=== PATIENT | female | born 1955 | race Caucasian/White ===

== ENCOUNTER 2021-10-11 11:43 | Outpatient (REF) | payer OTHER, SELFPAY ==
[2021-10-11 13:55] LABS: Hematocrit 39.2 % (37.0-47.0); Hemoglobin 12.7 g/dl (12.0-16.0)
[2021-10-11 14:07] LABS: Alanine Aminotransferase 11 U/L (0-31); Albumin Level 3.9 g/dL (3.5-5.0); Alkaline Phosphatase 73 U/L (39-117); Anion Gap 13 (12-20); Aspartate Amino Transferase 15 U/L (5-31); Bilirubin Total 0.3 mg/dL (0.0-1.0); Blood Urea Nitrogen 24 mg/dL (9-16); Calcium 9.2 mg/dL (8.4-10.2); Carbon Dioxide 23 mmol/L (22-29); Chloride 108 mmol/L (96-108); Cholesterol 213 mg/dL; Estimated Glomerular Filt Rate > 60; Glucose Fasting 82 mg/dL (60-99); HDL Cholesterol 45 mg/dL; LDL Cholesterol Calculated 139 mg/dl; Potassium 4.3 mmol/L (3.3-5.1); Sodium 140 mmol/L (135-145); Total Protein 6.7 g/dL (6.5-8.0); Triglycerides 145 mg/dL
== END 2021-10-11 11:44 | disposition home or self-care (01) ==
LOC: HO.HMGCLDS 11:43
PROVIDERS: PCP Internal Medicine; Visit Provider Internal Medicine
DX: M25.471 Effusion, right ankle (principal); M25.552 Pain in left hip; E66.09 Other obesity due to excess calories
CPT/HCPCS: 36415; 80053; 80061; 84443; 85014; 85018

== ENCOUNTER 2022-12-08 12:05 | Outpatient (REF) | payer OTHER, SELFPAY ==
--- NOTE | ~2022-12-08 | XR_ITS ---
EXAMINATION: XR ankle LT min 3V, XR foot LT min 3V CLINICAL INFORMATION: Pain COMPARISON: None. TECHNIQUE: 3 views of the left foot. 2 additional views of the left ankle. FINDINGS: Left foot: No fracture or dislocation. Alignment maintained. Joint spaces are maintained. Small Achilles heel spur. Small osteophytes at the first metatarsophalangeal joint. Scattered vascular calcifications. Left ankle: No fracture or dislocation. The ankle mortise is congruent. Mild lateral soft tissue swelling. XR/XR ankle LT min 3V IMPRESSION: No fracture or malalignment. Mild degenerative change at the first metatarsophalangeal joint. Small Achilles heel spur.
--- NOTE | ~2022-12-08 | XR_ITS ---
EXAMINATION: XR ankle LT min 3V, XR foot LT min 3V CLINICAL INFORMATION: Pain COMPARISON: None. TECHNIQUE: 3 views of the left foot. 2 additional views of the left ankle. FINDINGS: Left foot: No fracture or dislocation. Alignment maintained. Joint spaces are maintained. Small Achilles heel spur. Small osteophytes at the first metatarsophalangeal joint. Scattered vascular calcifications. Left ankle: No fracture or dislocation. The ankle mortise is congruent. Mild lateral soft tissue swelling. XR/XR foot LT min 3V IMPRESSION: No fracture or malalignment. Mild degenerative change at the first metatarsophalangeal joint. Small Achilles heel spur.
== END 2022-12-08 12:06 | disposition home or self-care (01) ==
LOC: HO.HMGCX 12:05
PROVIDERS: PCP Internal Medicine; Visit Provider Nurse Practitioner Family
DX: M25.572 Pain in left ankle and joints of left foot (principal); M79.672 Pain in left foot
CPT/HCPCS: 73610; 73630

== ENCOUNTER 2023-01-10 11:18 | Outpatient (REF) | payer OTHER, SELFPAY ==
[2023-01-10 14:23] LABS: MANUAL DIFF FLAG NO
[2023-01-10 14:38] LABS: Basophils Absolute Auto 0.1 X10*3/uL (0.0-0.2); Basophils Percent Auto 0.9 % (0-2); Eosinophils Absolute Auto 0.2 X10*3/uL (0.0-0.4); Eosinophils Percent Auto 2.4 % (0-4); Hematocrit 38.5 % (37.0-47.0); Hemoglobin 12.5 g/dl (12.0-16.0); Imm Gran Abs Auto 0.02 X10*3/uL (0.00-0.03); Imm Gran Pct Auto 0.3 % (0.0-0.4); Lymphocytes Absolute Auto 1.5 X10*3/uL (1.2-4.9); Lymphocytes Percent Auto 19.1 % (20-40); Mean Corpuscular HGB Conc 32.5 g/dl (31.0-35.0); Mean Corpuscular Hemoglobin 29.6 pg (27.0-33.0); Mean Corpuscular Volume 91.2 fL (80.0-98.0); Mean Platelet Volume 10.1 fL (9.4-12.3); Monocytes Absolute Auto 0.6 X10*3/uL (0.1-1.2); Neutrophils Absolute Auto 5.5 x10*3/uL (2.0-8.3); Neutrophils Percent Auto 70.3 % (45-73); Platelet Count 229 X10*3/uL (160-400); Red Blood Count 4.22 X10*6/uL (4.20-5.50); Red Cell Distribution Width 12.5 % (11.0-16.0); White Blood Count 7.8 X10*3/uL (4.8-10.8)
[2023-01-10 15:04] LABS: Alanine Aminotransferase 18 U/L (0-31); Albumin Level 4.1 g/dL (3.5-5.0); Alkaline Phosphatase 79 U/L (39-117); Anion Gap 13 (12-20); Aspartate Amino Transferase 21 U/L (5-31); Bilirubin Total 0.4 mg/dL (0.0-1.0); Blood Urea Nitrogen 25 mg/dL (9-16); Calcium 9.7 mg/dL (8.4-10.2); Carbon Dioxide 26 mmol/L (22-29); Chloride 109 mmol/L (96-108); Estimated Glomerular Filt Rate > 60; Glucose Random 88 mg/dL (60-115); Potassium 4.6 mmol/L (3.3-5.1); Sodium 143 mmol/L (135-145)
[2023-01-10 15:22] LABS: TSH reflex Free T4 3.33 uIU/mL (0.32-4.0); Vitamin B12 689 pg/mL (200-900)
[2023-01-12 09:28] LABS: LDL Cholesterol Direct 149 mg/dL (<100)
[2023-01-17 13:13] LABS: Vitamin D 25-OH, D2 <4 ng/mL; Vitamin D 25-OH, D3 17 ng/mL; Vitamin D 25-OH, Total 17 ng/mL (30-100)
== END 2023-01-10 11:19 | disposition home or self-care (01) ==
LOC: HO.HMGCLDS 11:18
PROVIDERS: PCP Internal Medicine; Visit Provider Internal Medicine
DX: Z00.01 Encounter for general adult medical examination with abnormal findings (principal); E66.09 Other obesity due to excess calories; M25.552 Pain in left hip; I83.893 Varicose veins of bilateral lower extremities with other complications; E66.9 Obesity, unspecified; R53.83 Other fatigue
CPT/HCPCS: 36415; 80053; 82306; 82607; 83721; 84443; 85025

== ENCOUNTER 2023-02-27 10:26 | Outpatient (AMB) | payer OTHER, SELFPAY ==
--- NOTE | 2023-02-27 10:28 | MHC.OFFVIS ---
Intake Vital Signs 02/27/23 10:29 Height 5 ft 6 in Weight 230 lb BMI 37.1 Intake Visit Reasons: PCP ref for VV Intake Note: PCP referral for VV, pt states she has left LE pain and issues with numbness on left foot, states she has Hx of Left calf muscle issue and goes to physical therapy.Pt states she has heaviness in Left LE Accompanied by: Self / Same As Patient Allergies No Known Allergies Allergy (Verified 02/27/23 10:31) HPI PCP ref for VV HPI Details 67-year-old female patient presents for painful varicose veins. Complaints include pain over varicosities, swelling of lower extremities, cramping, fatigue, and heaviness of the lower extremities. It has been affecting there daily activities including walking. It is noted more so in left leg. Her biggest complaint is the ?swelling and puffiness? of her legs Patient denies any previous venous surgery or injections. Patient denies any history of DVT/ PE. Patient denies any history of phlebitis. Trial of compression includes - [id number] They now present for vascular evaluation regarding their varicose veins. [facility] Social History Housing: House Patient Tobacco Use Status: Never used Tobacco e-Cigarette/Vaping Use: Never Used Current occupational status: employed Current occupation: [employer] Current occupational exposures/hazards: No Cognitive needs: No Hearing needs: No Vision needs: No Review of Systems Const Reports as per HPI ENT Reports no additional complaints Card Denies chest pain, Denies chest pain at rest and Denies chest pain with activity Resp Denies chest congestion and Denies cough GI Reports no additional complaints Musc Details: pain over varicosities, aching of lower extremities, swelling, cramping, heaviness and tiredness, itching Denies abnormal gait Skin/Breast Reports pruritus and Denies wounds Neuro Reports no additional complaints and Denies abnormal gait Psych Denies no additional complaints Physical Exam Vital Signs: BMI result Body Mass Index 37.1 Const General: cooperative, healthy appearing and comfortable Orientation/consciousness: oriented to person, oriented to place and oriented to time Neck Carotids: no bruits Chest Chest palpation & inspection: normal inspection of the chest and normal palpation of entire chest wall Resp Effort & Inspection: normal respiratory effort and able to speak in complete sentences Cardio Rate: regular rate Heart sounds: S1 normal heart sound present and S2 normal heart sound present Peripheral pulses: Peripheral pulses 2+ throughout GI Inspection: Yes normal to inspection Skin Other: +2 edema, left greater than right CEAP Classification C4 - skin color changes Ep - Etiology Primary As - superficial veins P - reflux General skin exam: dry skin Neuro General: oriented to person, oriented to place and oriented to time Extrem Right lower extremity: full ROM, normal capillary refill and edema Left lower extremity: full ROM, normal capillary refill and edema Psych Mental Status: mental status grossly normal Assessment & Plan Assessment & Plan (1) Varicose veins of left lower extremity with inflammation: Code(s): I83.12 - Varicose veins of left lower extremity with inflammation Plan: In short, the patient has evidence of venous insufficiency. I have discussed the pathophysiology with the patient. In addition I have provided informational material regarding venous disease to the patient. We have discussed conservative measures including compression, elevation, and exercise. I have also provided a handout regarding appropriate use of compression stockings and where to purchase good compression stockings as well. I have taken the liberty of ordering venous insufficiency testing with the patient. They will follow up with me after testing. The patient had an opportunity to ask questions regarding the treatment plan. All questions were answered. Imaging studies, laboratory studies and physical exam results were discussed and reviewed in detail. No major barriers to understanding were identified. The patient expressed understanding and agreement with the above treatment plan. The patient is aware they should contact our office by phone for worsening of the current condition or the appearance of new symptoms. Thank you for allowing me to participate in the vascular care of this patient. If you have any questions or concerns regarding the treatment for the above condition please do not hesitate to contact me. The office telephone contact is [phone]. This note is constructed using voice recognition software. While every effort has been made to ensure accuracy, ultimate hoops scoreboard operator errors may have been included. Thank you for allowing me to participate in the care of your patient. Yours sincerely, Geronimo Love MD, FACS, R.P.V.I. Orders: Orders US venous duplex LE BI 1 Week I83.12 - Varicose veins of left lower extremity with inflammation Coding Level of Care Code New Pt Level 4 (72237) Diagnoses Varicose veins of left lower extremity with inflammation I83.12
[2023-02-27 10:29] VITALS: BMI 37.1
== END 2023-02-27 10:55 | disposition home or self-care (01) ==
LOC: HO.HVS 10:26
PROVIDERS: PCP Internal Medicine; Visit Provider Surgery Vascular Surgery
DX: I83.12 Varicose veins of left lower extremity with inflammation (principal)
CPT/HCPCS: 99203

== ENCOUNTER → 2023-02-27 10:26 | Outpatient (BNVA) | payer OTHER, SELFPAY | PROVIDERS: PCP Internal Medicine; Visit Provider Surgery Vascular Surgery ==

== ENCOUNTER 2023-03-08 10:12 | Outpatient (REF) | payer OTHER, SELFPAY ==
--- NOTE | ~2023-03-08 | US_ITS ---
EXAMINATION: US LOWER EXTREMITY VENOUS (REFLUX EXAM), BILATERAL CLINICAL INDICATION: Varicose veins of the left lower extremity COMPARISON: None. TECHNIQUE: Color flow triplex imaging and compression Doppler was performed to evaluate both the deep and the superficial systems bilaterally. To evaluate the superficial system, the examination was performed in the upright position. Color-flow Doppler ultrasound and compression ultrasound were utilized. In addition, maneuvers were utilized to demonstrate reflux. FINDINGS: RIGHT: 1. DEEP VENOUS ULTRASOUND OF THE RIGHT LOWER EXTREMITY: Common Femoral Vein: Compressible, normal respiratory variation and augmented flow. Popliteal Vein: Compressible, normal augmentation. Deep Venous Reflux: There is no evidence of reflux in the deep system in either the common femoral vein or the popliteal vein. There is no evidence of a Neri's cyst. 2. SUPERFICIAL ULTRASOUND WITH DOPPLER OF RIGHT LOWER EXTREMITY: RIGHT GREAT SAPHENOUS VEIN: Saphenofemoral Junction: 6 mm. No reflux. Proximal Thigh: 6 mm. No reflux. Mid Thigh: 4 mm. No reflux. Above Knee: 3 mm. No reflux. Below Knee: 3 mm. No reflux. Mid Calf: 2 mm. No reflux. Ankle: 3 mm. No reflux. DUPLICATED GREAT SAPHENOUS VEIN: Yes, laterally Saphenofemoral junction: 2 mm. No reflux. Mid thigh: 2 mm. No reflux. RIGHT SMALL SAPHENOUS VEIN: Proximal: 2 mm. 1268 ms reflux. Distal: 2 mm. 2656 ms reflux. PERFORATORS: None LEFT: 1. DEEP VENOUS ULTRASOUND OF THE LEFT LOWER EXTREMITY: Common Femoral Vein: Compressible, normal respiratory variation and augmented flow. Popliteal Vein: Compressible, normal augmentation. Deep Venous Reflux: There is no evidence of reflux in the deep system in either the common femoral vein or the popliteal vein. There is no evidence of a Neri's cyst. 2. SUPERFICIAL ULTRASOUND WITH DOPPLER OF LEFT LOWER EXTREMITY: LEFT GREAT SAPHENOUS VEIN: Saphenofemoral Junction: 7 mm. No reflux. Proximal Thigh: 6 mm. No reflux. Mid Thigh: 2 mm. No reflux. Above Knee: 4 mm. No reflux. Below Knee: 3 mm. No reflux. Mid Calf: 2 mm. 34838 ms reflux. Ankle: 2 mm. No reflux. DUPLICATED GREAT SAPHENOUS VEIN: Yes, laterally Saphenofemoral junction: 2 mm. No reflux. Mid thigh: 2 mm. No reflux. LEFT SMALL SAPHENOUS VEIN: Proximal: 3 mm. No reflux. Distal: 2 mm. No reflux. PERFORATORS: Yes, at the level of the mid calf tubing to the great saphenous vein. US/US venous duplex LE BI IMPRESSION: 1. No evidence of deep vein thrombosis or abnormal deep venous reflux. 2. Prolonged superficial venous reflux within the right small saphenous vein. 3. Focal abnormal official venous reflux within the mid calf great saphenous vein, likely from adjacent boiler water tester. Abnormal lower extremity venous reflux times: Superficial and deep calf veins: >500 ms Femoropopliteal veins: >1000 ms Perforating veins: >350 ms Jonathon N, Gilda J, Lilo L, [place], Stevie SS, Crow Reyes, Halle WH. Definition of venous reflux in lower-extremity veins.J Vasc Surg. 2003; [id number].
== END 2023-03-08 10:13 | disposition home or self-care (01) ==
LOC: HO.US 10:12
PROVIDERS: PCP Internal Medicine; Visit Provider Surgery Vascular Surgery
DX: I83.12 Varicose veins of left lower extremity with inflammation (principal)
CPT/HCPCS: 93970

== ENCOUNTER 2023-04-03 10:58 | Outpatient (AMB) | payer OTHER, SELFPAY ==
--- NOTE | 2023-04-03 11:00 | MHC.OFFVIS ---
Intake Vital Signs 04/03/23 11:03 Height 5 ft 6 in Weight 230 lb BMI 37.1 Intake Visit Reasons: follow up s/p 03/08/23 Intake Note: Patient is here for a follow up s/p 03/08/23 Accompanied by: self Allergies No Known Allergies Allergy (Verified 04/03/23 11:02) HPI follow up s/p 03/08/23 HPI Details Very pleasant 67-year-old female presents for follow-up regarding lower extremity pain and discomfort. She notes swelling and discomfort bilateral lower extremities. She now presents for follow-up with venous insufficiency testing. Of note she has tried compression which has provided minimal relief. She has had difficulty wearing compression stockings as well. [facility] Social History Housing: House Patient Tobacco Use Status: Never used Tobacco e-Cigarette/Vaping Use: Never Used Current occupational status: employed Current occupation: [employer] Current occupational exposures/hazards: No Cognitive needs: No Hearing needs: No Vision needs: No Review of Systems Const Reports as per HPI ENT Reports no additional complaints Card Denies chest pain, Denies chest pain at rest and Denies chest pain with activity Resp Denies chest congestion and Denies cough GI Reports no additional complaints Musc Details: pain over varicosities, aching of lower extremities, swelling, cramping, heaviness and tiredness, itching Denies abnormal gait Skin/Breast Reports pruritus and Denies wounds Neuro Reports no additional complaints and Denies abnormal gait Psych Denies no additional complaints Physical Exam Vital Signs: BMI result Body Mass Index 37.1 Const General: cooperative, healthy appearing and comfortable Orientation/consciousness: oriented to person, oriented to place and oriented to time Neck Carotids: no bruits Chest Chest palpation & inspection: normal inspection of the chest and normal palpation of entire chest wall Resp Effort & Inspection: normal respiratory effort and able to speak in complete sentences Cardio Rate: regular rate Heart sounds: S1 normal heart sound present and S2 normal heart sound present Peripheral pulses: Peripheral pulses 2+ throughout GI Inspection: Yes normal to inspection Skin Other: +2 edema, General skin exam: dry skin Neuro General: oriented to person, oriented to place and oriented to time Extrem Right lower extremity: full ROM, normal capillary refill and edema Left lower extremity: full ROM, normal capillary refill and edema Psych Mental Status: mental status grossly normal Results Reviewed Results Reviewed: Brief summary of venous insufficiency testing is as follows: right great saphenous vein: negative right small saphenous vein: negative right accessory vein: none present left great saphenous vein: negative left small saphenous vein: negative left accessory vein: none present Please note there is no evidence of any venous aneurysms or significant tortuosity Assessment & Plan Assessment & Plan (1) Varicose veins of left lower extremity with inflammation: Code(s): I83.12 - Varicose veins of left lower extremity with inflammation Plan: In short patient is negative for any significant venous insufficiency. We did discuss routine conservative measures including compression elevation and exercise. She did have a challenge with the compression stockings and we did discuss title clerk automobile grade compression including use of [id number] compression stockings. She will try to see if she can acquire some of these to assist in controlling some of this edema. She will follow up with us on an as-needed basis. Thank you for allowing us to assist in her care. If there are questions or concerns please do not hesitate to contact us. Coding Level of Care Code Est Pt Level 4 (50127) Diagnoses Varicose veins of left lower extremity with inflammation I83.12
[2023-04-03 11:03] VITALS: BMI 37.1
== END 2023-04-03 11:19 | disposition home or self-care (01) ==
PROVIDERS: PCP Internal Medicine; Visit Provider Surgery Vascular Surgery
DX: I83.12 Varicose veins of left lower extremity with inflammation (principal)
CPT/HCPCS: 99213

== ENCOUNTER → 2023-04-03 10:58 | Outpatient (BNVA) | payer OTHER, SELFPAY | PROVIDERS: PCP Internal Medicine; Visit Provider Surgery Vascular Surgery ==

== ENCOUNTER 2023-08-24 08:31 | Outpatient (AMB) | payer OTHER, SELFPAY ==
--- NOTE | 2023-08-24 08:42 | MHC.PC.OV ---
Intake Visit Reasons: Singles? per Dr. Leal Allergies No Known Allergies Allergy (Verified 08/24/23 08:34) Medication List - Last Reconciled 08/24/23 by Gloria Leal MD meloxicam 15 mg PO DAILY 90 days omeprazole 20 mg PO DAILY 90 days Tobacco use date assessed: 08/24/23 Fall risk assessment: No Falls in past year Last assessed Fall Risk: 08/24/23 Dental Screening Dental Screen Date: 08/24/23 Did you have a dental visit in the last 12 months?: No Did you have a dental problem in the last 6 months where you did not have access to dental care?: No Was dental information given to patient?: No HPI Singles? per Dr. Leal HPI Details Patient is 68 year old female She developed rash right upper shoulder last witnessed a Which was painful She went to urgent care Sunday and was prescribed acyclovir and meloxicam Patient is almost done with acyclovir, feeling little bit better but pain is still there. Today on examination there is no rash however she is sensitive to touch right shoulder on the back. Range of motion of shoulder is intact. Patient says that she did had a shingles vaccine. I am starting her on gabapentin 300 mg at night along with tramadol 50 mg Patient is to finish tramadol for 2 weeks and then gabapentin may continued for a month She admits that she is not eating healthy only bread, we talked about nutritious diet I have sent B complex vitamin she is to start taking that as well Follow-up again in 2 weeks [facility] Social History Housing: House Patient Tobacco Use Status: Never used Tobacco e-Cigarette/Vaping Use: Never Used Current occupational status: employed Current occupation: [employer] Current occupational exposures/hazards: No Cognitive needs: No Hearing needs: No Vision needs: No Questionnaire Thrive Questionnaire Date Thrive assessed: 01/10/23 AUDIT C Alcohol Use Questionnaire (AUDIT-C) 1. How often do you have a drink containing alcohol?: Never 3. How often do you have six or more drinks on one occasion?: Never Total Score: 0 Score Reviewed/Action Taken: Yes MARGAUX-7 AMB Questionnaire MARGAUX-7 Date MARGAUX - 7 assessed: 01/10/23 Source: Developed by Drs. Marlon L. PrincessMaritza powers, Bryan Madrid and colleagues, with an educational lorri from [employer]. Review of Systems Const Denies chills and Denies fever(s) ENT Denies epistaxis and Denies nasal discharge Card Denies chest pain Resp Denies chest congestion, Denies cough and Denies hemoptysis GI Denies diarrhea and Denies nausea Skin/Breast Denies rash Neuro Reports no additional complaints Psych Reports no additional complaints Endo Reports no additional complaints Physical exam (Primary Care) Tobacco/Smoking Status: Tobacco use Status Tobacco use date assessed 08/24/23 08/24/23 08:43 Patient Tobacco Use Status Never used Tobacco 08/24/23 08:43 e-Cigarette/Vaping Use Never Used 08/24/23 08:43 Thrive Assessment: Date of Thrive Assessment Date Thrive assessed 01/10/23 08/24/23 08:43 Const General: cooperative, comfortable and no acute distress Orientation/consciousness: patient oriented x3 HENMT Head: Yes normocephalic Eyes General: appearance normal, both eyes and all related structures Neck Neck: Yes supple Resp Effort & Inspection: normal respiratory effort, no cough and no stridor Cardio Rhythm: regular rhythm Heart sounds: S1 normal heart sound present and S2 normal heart sound present Skin General skin exam: turgor normal Neuro General: patient oriented x3, tone normal and moves all extremities Extrem Shoulder/upper arm images: 1. Sensitive to touch, no rash seen, range of motion shoulder intact Right lower extremity: no edema Left lower extremity: no edema Assessment and Plan Assessment & Plan (1) Post herpetic neuralgia: Code(s): B02.29 - Other postherpetic nervous system involvement Plan Patient is 68 year old female She developed rash right upper shoulder last witnessed a Which was painful She went to urgent care Sunday and was prescribed acyclovir and meloxicam Patient is almost done with acyclovir, feeling little bit better but pain is still there. Today on examination there is no rash however she is sensitive to touch right shoulder on the back. Range of motion of shoulder is intact. Patient says that she did had a shingles vaccine. I am starting her on gabapentin 300 mg at night along with tramadol 50 mg Patient is to finish tramadol for 2 weeks and then gabapentin may continued for a month She admits that she is not eating healthy only bread, we talked about nutritious diet I have sent B complex vitamin she is to start taking that as well Follow-up again in 2 weeks Medications: New B complex [id number] administer with a meal 1 tab PO DAILY 90 tabs 0RF Multivitamin 90 days gabapentin 300 mg PO BEDTIME 30 caps 0RF tramadol 50 mg PO BID PRN 14 tabs 0RF pain Discontinued meloxicam Discontinued Reason: Doctor's Order 15 mg PO DAILY 90 days 90 tabs 0RF Coding Level of Care Code Est Pt Level 4 (41048) Diagnoses Post herpetic neuralgia B02.29
== END 2023-08-24 10:07 | disposition home or self-care (01) ==
LOC: HO.HMGC 08:31
PROVIDERS: PCP Internal Medicine; Visit Provider Internal Medicine
DX: B02.29 Other postherpetic nervous system involvement (principal)
CPT/HCPCS: 99214

== ENCOUNTER 2023-09-12 12:26 | Outpatient (AMB) | payer OTHER, SELFPAY ==
[2023-09-12 12:30] VITALS: BP 162/86; PULSE 123; O2SAT 83; BMI 37.0
--- NOTE | 2023-09-12 12:30 | MHC.PC.OV ---
Vital Signs 09/12/23 12:30 Height 5 ft 6 in Weight 229 lb 2 oz BMI 37.0 BP 162/86 H Blood Pressure Location Rt brachial Position Sitting Pulse 123 H Pulse Source Pulse Oximeter Pulse Oximetry (%) 83 L Oxygen Delivery Method Room Air Intake Visit Reasons: 2 week fu Allergies No Known Allergies Allergy (Verified 09/12/23 12:32) Medication List - Last Reconciled 09/12/23 by Gloria Leal MD atenolol 25 mg PO DAILY B complex 30-vqfgn-X-biot-zinc [id number] at-vs-rix-mg 1 tab PO DAILY 90 days gabapentin 300 mg PO BEDTIME omeprazole 20 mg PO DAILY 90 days tramadol 50 mg PO BID PRN Tobacco use date assessed: 09/12/23 Fall risk assessment: No Falls in past year Last assessed Fall Risk: 09/12/23 Dental Screening Dental Screen Date: 09/12/23 Did you have a dental visit in the last 12 months?: No Did you have a dental problem in the last 6 months where you did not have access to dental care?: No Was dental information given to patient?: Patient declined HPI 2 week fu HPI Details Patient is 68-year-old female came in today for a follow-up on post herpetic neuralgia right upper back Patient says that gabapentin 300 was too strong so she could not take it, I am reducing the dose to 100 mg capsule Her blood pressure continued to be high it is 162/86, it was 160/80 last time but patient did not wanted to take the medicine Today she agreed to take the medicine, I have sent atenolol 25 mg tablet patient is to start taking 1 daily Her heart rate is elevated at 123 as well but we rechecked after 15 minutes and it was 80 regular She has no headache no chest pain no shortness a breath no nausea no vomiting She does complain of feeling weak in her right hand, I want to do refer her to neurologist which patient declined I want to daughter EMG nerve conduction study which patient declined as well. Lab order placed to be done today Patient is to give me a call if there is any problem with blood pressure medication or if her blood pressure continued to be elevated above 140 systolic She said that her niece is nurse and she will be monitoring her blood pressure. BMI is elevated need to lose weight PFSH Social History Housing: House Patient Tobacco Use Status: Never used Tobacco e-Cigarette/Vaping Use: Never Used Current occupational status: employed Current occupation: [employer] Current occupational exposures/hazards: No Cognitive needs: No Hearing needs: No Vision needs: No Questionnaire PHQ-9 Over the last 2 weeks, how often have you been bothered by any of the following problems? 1. Little interest or pleasure in doing things: not at all 2. Feeling down, depressed, or hopeless: not at all 3. Trouble falling or staying asleep, or sleeping too much: not at all 4. Feeling tired or having little energy: not at all 5. Poor appetite or overeating: not at all 6. Feeling bad about yourself - or that you are a failure or have let yourself or your family down: not at all 7. Trouble concentrating on things, such as reading the newspaper or watching television: not at all 8. Moving or speaking so slowly that other people could have noticed. Or the opposite - being so fidgety or restless that you have been moving around a lot more than usual: not at all 9. Thoughts that you would be better off or of hurting yourself in some way: not at all Total score: 0 Depression Screening Interpretation: Negative Depression Screening Done: Yes 84755 - PHQ-9 Billing: Yes Source: Developed by Drs. Marlon Sánchez, Maritza Chacon, Bryan Madrid and colleagues, with an educational lorri from [employer]. Thrive Questionnaire Date Thrive assessed: 01/10/23 MARGAUX-7 AMB Questionnaire MARGAUX-7 Date MARGAUX - 7 assessed: 01/10/23 Source: Developed by Drs. Marlon Sánchez, Maritza Chacon, Bryan Madrid and colleagues, with an educational lorri from [employer]. Review of Systems Const Denies chills and Denies fever(s) ENT Denies epistaxis and Denies nasal discharge Card Denies chest pain Resp Denies chest congestion, Denies cough and Denies hemoptysis GI Denies diarrhea and Denies nausea Skin/Breast Denies rash Neuro Reports no additional complaints Psych Reports no additional complaints Endo Reports no additional complaints Physical exam (Primary Care) Vital Signs: Last Vital Signs Pulse 123 H 09/12/23 12:30 BP 162/86 H 09/12/23 12:30 Pulse Ox 83 L 09/12/23 12:30 Oxygen Delivery Method Room Air 09/12/23 12:30 BMI result Body Mass Index 37.0 Tobacco/Smoking Status: Tobacco use Status Tobacco use date assessed 09/12/23 09/12/23 12:33 Patient Tobacco Use Status Never used Tobacco 09/12/23 12:33 e-Cigarette/Vaping Use Never Used 09/12/23 12:33 Depression Screening Interpretation: Negative Thrive Assessment: Date of Thrive Assessment Date Thrive assessed 01/10/23 09/12/23 12:33 Const General: cooperative, comfortable and no acute distress Orientation/consciousness: patient oriented x3 HENMT Head: Yes normocephalic Eyes General: appearance normal, both eyes and all related structures Neck Neck: Yes supple Resp Effort & Inspection: normal respiratory effort, no cough and no stridor Cardio Rhythm: regular rhythm Heart sounds: S1 normal heart sound present and S2 normal heart sound present Skin General skin exam: turgor normal Neuro Other: On exam today she has strong relocation associate both hands right side slightly weaker than left, her neck is supple without any pain General: patient oriented x3, tone normal and moves all extremities Extrem Right lower extremity: no edema Left lower extremity: no edema Assessment and Plan Assessment & Plan (1) Uncontrolled hypertension: Code(s): I10 - Essential (primary) hypertension (2) Post herpetic neuralgia: Code(s): B02.29 - Other postherpetic nervous system involvement (3) Obesity due to excess calories: Code(s): E66.09 - Other obesity due to excess calories Qualifiers: Body mass index: BMI 37.0-37.9 Obesity classification: adult class 2 (BMI 35 - 39.9) Serious obesity comorbidity presence: with serious comorbidity Qualified Code(s): E66.01 - Morbid (severe) obesity due to excess calories; Z68.37 - Body mass index [BMI] 37.0-37.9, adult (4) Weakness of right hand: Code(s): R29.898 - Other symptoms and signs involving the musculoskeletal system Plan Patient is 68-year-old female came in today for a follow-up on post herpetic neuralgia right upper back Patient says that gabapentin 300 was too strong so she could not take it, I am reducing the dose to 100 mg capsule Her blood pressure continued to be high it is 162/86, it was 160/80 last time but patient did not wanted to take the medicine Today she agreed to take the medicine, I have sent atenolol 25 mg tablet patient is to start taking 1 daily Her heart rate is elevated at 123 as well but we rechecked after 15 minutes and it was 80 regular She has no headache no chest pain no shortness a breath no nausea no vomiting She does complain of feeling weak in her right hand, I want to do refer her to neurologist which patient declined I want to daughter EMG nerve conduction study which patient declined as well. Lab order placed to be done today Patient is to give me a call if there is any problem with blood pressure medication or if her blood pressure continued to be elevated above 140 systolic She said that her niece is nurse and she will be monitoring her blood pressure. BMI is elevated need to lose weight Orders: Orders Complete Blood Count Auto Diff Today B02.29 - Other postherpetic nervous system involvement, I10 - Essential (primary) hypertension Comprehensive Met. Panel Today B02.29 - Other postherpetic nervous system involvement, I10 - Essential (primary) hypertension LDL Cholesterol Direct Today B02.29 - Other postherpetic nervous system involvement, I10 - Essential (primary) hypertension TSH reflex Free T4 Today B02.29 - Other postherpetic nervous system involvement, I10 - Essential (primary) hypertension Medications: New atenolol 25 mg PO DAILY 90 tabs 0RF Changed From gabapentin 300 mg PO BEDTIME 30 caps 0RF To gabapentin 100 mg PO BEDTIME 90 days 90 caps 0RF Discontinued tramadol Discontinued Reason: Doctor's Order 50 mg PO BID PRN 14 tabs 0RF pain Coding Level of Care Code Est Pt Level 4 (43604) Diagnoses Uncontrolled hypertension I10 Post herpetic neuralgia B02.29 Class 2 severe obesity due to excess calories with serious comorbidity and body mass index (BMI) of 37.0 to 37.9 in adult E66.01; Z68.37 Body mass index: BMI 37.0-37.9 Obesity classification: adult class 2 (BMI 35 - 39.9) Serious obesity comorbidity presence: with serious comorbidity Weakness of right hand R29.898
== END 2023-09-12 12:49 | disposition home or self-care (01) ==
PROVIDERS: PCP Internal Medicine; Visit Provider Internal Medicine
DX: I10 Essential (primary) hypertension (principal); B02.29 Other postherpetic nervous system involvement; E66.01 Morbid (severe) obesity due to excess calories; Z68.37 Body mass index [BMI] 37.0-37.9, adult; R29.898 Other symptoms and signs involving the musculoskeletal system
CPT/HCPCS: 99214

== ENCOUNTER 2023-09-12 12:49 | Outpatient (REF) | payer OTHER, SELFPAY ==
[2023-09-12 16:16] LABS: MANUAL DIFF FLAG NO
[2023-09-12 17:12] LABS: Basophils Absolute Auto 0.1 X10*3/uL (0.0-0.2); Basophils Percent Auto 0.6 % (0-2); Eosinophils Absolute Auto 0.2 X10*3/uL (0.0-0.4); Eosinophils Percent Auto 2.3 % (0-4); Hemoglobin 12.6 g/dl (12.0-16.0); Imm Gran Abs Auto 0.02 X10*3/uL (0.00-0.03); Imm Gran Pct Auto 0.3 % (0.0-0.4); Lymphocytes Absolute Auto 1.3 X10*3/uL (1.2-4.9); Mean Corpuscular HGB Conc 32.3 g/dl (31.0-35.0); Mean Corpuscular Hemoglobin 29.2 pg (27.0-33.0); Mean Corpuscular Volume 90.5 fL (80.0-98.0); Mean Platelet Volume 10.5 fL (9.4-12.3); Monocytes Absolute Auto 0.5 X10*3/uL (0.1-1.2); Monocytes Percent Auto 6.1 % (2-11); Neutrophils Absolute Auto 5.7 x10*3/uL (2.0-8.3); Neutrophils Percent Auto 73.7 % (45-73); Platelet Count 232 X10*3/uL (160-400); Red Blood Count 4.31 X10*6/uL (4.20-5.50); Red Cell Distribution Width 12.5 % (11.0-16.0); White Blood Count 7.8 X10*3/uL (4.8-10.8)
[2023-09-12 17:20] LABS: Alanine Aminotransferase 18 U/L (0-31); Alkaline Phosphatase 71 U/L (39-117); Anion Gap 11 (12-20); Aspartate Amino Transferase 18 U/L (5-31); Bilirubin Total 0.2 mg/dL (0.0-1.0); Blood Urea Nitrogen 30 mg/dL (9-16); Calcium 9.6 mg/dL (8.4-10.2); Carbon Dioxide 25 mmol/L (22-29); Chloride 111 mmol/L (96-108); Estimated Glomerular Filt Rate > 60; Glucose Random 89 mg/dL (60-115); Potassium 5.2 mmol/L (3.3-5.1); Sodium 142 mmol/L (135-145); Total Protein 6.9 g/dL (6.5-8.0)
[2023-09-12 17:36] LABS: TSH reflex Free T4 3.25 uIU/mL (0.32-4.0)
[2023-09-14 12:18] LABS: LDL Cholesterol Direct 166 mg/dL (<100)
== END 2023-09-12 12:50 | disposition home or self-care (01) ==
LOC: HO.HMGCLDS 12:49
PROVIDERS: PCP Internal Medicine; Visit Provider Internal Medicine
DX: I10 Essential (primary) hypertension (principal); B02.29 Other postherpetic nervous system involvement
CPT/HCPCS: 36415; 80053; 83721; 84443; 85025

== ENCOUNTER 2024-01-22 11:24 | Outpatient (AMB) | payer OTHER, SELFPAY ==
--- NOTE | 2024-01-22 11:29 | A.OFFPC_ITS ---
Vital Signs 01/22/24 11:31 Height 5 ft 6 in Weight 228 lb 2 oz BMI 36.8 BP 158/82 H Blood Pressure Location Rt brachial Position Sitting Pulse 76 Pulse Source Pulse Oximeter Pulse Oximetry (%) 96 Oxygen Delivery Method Room Air Intake Visit Reasons: PE - see comments Allergies No Known Allergies Allergy (Verified 09/12/23 12:32) Medication List - Last Reconciled 01/22/24 by Gloria Leal MD atenolol 25 mg PO DAILY B complex 21-wcmud-G-biot-zinc [id number] wl-tx-dkl-mg 1 tab PO DAILY 90 days gabapentin 100 mg PO BEDTIME 90 days omeprazole 20 mg PO DAILY 90 days Tobacco use date assessed: 01/22/24 Fall risk assessment: No Falls in past year Last assessed Fall Risk: 01/22/24 Dental Screening Dental Screen Date: 01/22/24 Did you have a dental visit in the last 12 months?: Yes Did you have a dental problem in the last 6 months where you did not have access to dental care?: No Was dental information given to patient?: Patient has dentist HPI PE - see comments HPI Details Patient is a 68-year-old female came in today for physical examination I see that her blood pressure is still elevated, patient says that she has been missing blood pressure medication She did not take it last night. We talked about compliance with the medical advice, I would recommend that she takes medication as prescribed without missing the doses Patient had labs in August, due for labs again order placed to be done today Need to lose weight BMI is elevated Patient declined to do mammogram or colonoscopy she does not want to see OBGYN either. She will return in 4 months for follow-up appointment in 1 year physical exam I have stopped meloxicam as she no longer have pain in her feet She did not feel well taking gabapentin so that was stopped as 1 Continue omeprazole [facility] Social History Housing: House Patient Tobacco Use Status: Never used Tobacco e-Cigarette/Vaping Use: Never Used Current occupational status: employed Current occupation: [employer] Current occupational exposures/hazards: No Cognitive needs: No Hearing needs: No Vision needs: No Questionnaire Thrive Questionnaire Date Thrive assessed: 01/10/23 AUDIT C Alcohol Use Questionnaire (AUDIT-C) 1. How often do you have a drink containing alcohol?: Never 3. How often do you have six or more drinks on one occasion?: Never Total Score: 0 Score Reviewed/Action Taken: Yes MARGAUX-7 AMB Questionnaire MARGAUX-7 Date MARGAUX - 7 assessed: 01/10/23 Source: Developed by Drs. Marlon Sánchez, Maritza Chacon, Bryan Madrid and colleagues, with an educational lorri from [employer]. Review of Systems Const Denies chills, Denies fever(s) and Denies headache(s) Eyes Denies blurry vision ENT Denies headache(s), Denies nasal discharge, Denies nasal obstruction, Denies odynophagia and Denies sinus pain Card Denies chest pain at rest and Denies chest pain with activity Resp Denies cough and Denies hemoptysis GI Denies diarrhea, Denies odynophagia, Denies vomiting and Denies hematemesis Reports as per HPI Musc Denies abnormal gait Skin/Breast Reports as per HPI Neuro Denies Neuro-related abnormal movements, Denies Abnormal speech present, Denies abnormal gait, Denies headache(s) and Denies Sensory deficit (Neuro) Psych Denies mood swings and Denies paranoia Endo Reports as per HPI Geoff/Lymph Reports as per HPI Aller/Immun Reports as per HPI Physical exam (Primary Care) Vital Signs: Last Vital Signs Pulse 76 01/22/24 11:31 BP 158/82 H 01/22/24 11:31 Pulse Ox 96 01/22/24 11:31 Oxygen Delivery Method Room Air 01/22/24 11:31 BMI result Body Mass Index 36.8 Tobacco/Smoking Status: Tobacco use Status Tobacco use date assessed 01/22/24 01/22/24 11:34 Patient Tobacco Use Status Never used Tobacco 01/22/24 11:30 e-Cigarette/Vaping Use Never Used 01/22/24 11:30 Thrive Assessment: Date of Thrive Assessment Date Thrive assessed 01/10/23 01/22/24 11:30 Const General: cooperative, comfortable and no acute distress Orientation/consciousness: patient oriented x3 HENMT Head: Yes normocephalic and Yes atraumatic Eyes General: appearance normal, both eyes and all related structures Pupils: Equal, round and reactive pupils present EOM: EOMs intact bilaterally Neck Neck: Yes supple and No lymphadenopathy Thyroid: Thyroid normal Lymphatic: no lymphadenopathy noted Resp Effort & Inspection: normal respiratory effort and able to speak in complete sentences Auscultation: clear to auscultation bilaterally Cardio Heart sounds: S1 normal heart sound present and S2 normal heart sound present GI Palpation (GI): Soft to palpation and nontender Auscultation: normal bowel sounds General: Yes no CVA tenderness Back/Spine/Pelvis Back: no CVA tenderness Skin General skin exam: elasticity normal and turgor normal Neuro General: patient oriented x3 and gait normal Cranial nerves: Yes Equal, round and reactive pupils present Speech: No Abnormal speech present Sensory Exam: No Sensory deficit (Neuro) Coordination: tandem gait normal and Romberg test negative Extrem General: Yes normal exam except as noted and No edema Assessment and Plan Assessment & Plan (1) Encounter for general adult medical examination with abnormal findings: Code(s): Z00.01 - Encounter for general adult medical examination with abnormal findings (2) Uncontrolled hypertension: Code(s): I10 - Essential (primary) hypertension (3) Obesity due to excess calories: Code(s): E66.09 - Other obesity due to excess calories Qualifiers: Body mass index: BMI 37.0-37.9 Obesity classification: adult class 2 (BMI 35 - 39.9) Serious obesity comorbidity presence: with serious comorbidity Qualified Code(s): E66.01 - Morbid (severe) obesity due to excess calories; Z68.37 - Body mass index [BMI] 37.0-37.9, adult (4) Chronic GERD: Code(s): K21.9 - Gastro-esophageal reflux disease without esophagitis Plan Patient is a 68-year-old female came in today for physical examination I see that her blood pressure is still elevated, patient says that she has been missing blood pressure medication She did not take it last night. We talked about compliance with the medical advice, I would recommend that she takes medication as prescribed without missing the doses Patient had labs in August, due for labs again order placed to be done today Need to lose weight BMI is elevated Patient declined to do mammogram or colonoscopy she does not want to see OBGYN either. She will return in 4 months for follow-up appointment in 1 year physical exam I have stopped meloxicam as she no longer have pain in her feet She did not feel well taking gabapentin so that was stopped as 1 Continue omeprazole Orders: Orders TSH reflex Free T4 Today E66.01 - Morbid (severe) obesity due to excess calories, I10 - Essential (primary) hypertension, Z00.01 - Encounter for general adult medical examination with abnormal findings, Z68.37 - Body mass index [BMI] 37.0-37.9, adult Vitamin D 25-OH (D2 and D3) Today E66.01 - Morbid (severe) obesity due to excess calories, I10 - Essential (primary) hypertension, Z00.01 - Encounter for general adult medical examination with abnormal findings, Z68.37 - Body mass index [BMI] 37.0-37.9, adult Complete Blood Count Auto Diff Today E66.01 - Morbid (severe) obesity due to excess calories, I10 - Essential (primary) hypertension, Z00.01 - Encounter for general adult medical examination with abnormal findings, Z68.37 - Body mass index [BMI] 37.0-37.9, adult Comprehensive Met. Panel Today E66.01 - Morbid (severe) obesity due to excess calories, I10 - Essential (primary) hypertension, Z00.01 - Encounter for general adult medical examination with abnormal findings, Z68.37 - Body mass index [BMI] 37.0-37.9, adult LDL Cholesterol Direct Today E66.01 - Morbid (severe) obesity due to excess calories, I10 - Essential (primary) hypertension, Z00.01 - Encounter for general adult medical examination with abnormal findings, Z68.37 - Body mass index [BMI] 37.0-37.9, adult Medications: New atenolol 25 mg PO DAILY 90 tabs 0RF Discontinued gabapentin Discontinued Reason: Doctor's Order 100 mg PO BEDTIME 90 days 90 caps 0RF On Hold omeprazole Hold Comment: Doctor's Order 20 mg PO DAILY 90 days 90 caps 0RF Coding Level of Care Code Est Pt Prev Care >65y(18265) Diagnoses Encounter for general adult medical examination with abnormal findings Z00.01 Uncontrolled hypertension I10 Class 2 severe obesity due to excess calories with serious comorbidity and body mass index (BMI) of 37.0 to 37.9 in adult E66.01; Z68.37 Body mass index: BMI 37.0-37.9 Obesity classification: adult class 2 (BMI 35 - 39.9) Serious obesity comorbidity presence: with serious comorbidity Chronic GERD K21.9
[2024-01-22 11:31] VITALS: BP 158/82; PULSE 76; O2SAT 96; BMI 36.8
== END 2024-01-22 12:03 | disposition home or self-care (01) ==
PROVIDERS: Visit Provider Internal Medicine
DX: Z00.00 Encounter for general adult medical examination without abnormal findings (principal); I10 Essential (primary) hypertension; E66.01 Morbid (severe) obesity due to excess calories; Z68.37 Body mass index [BMI] 37.0-37.9, adult; K21.9 Gastro-esophageal reflux disease without esophagitis
CPT/HCPCS: 99397

== ENCOUNTER 2024-01-22 12:06 | Outpatient (REF) | payer OTHER, SELFPAY ==
[2024-01-22 13:21] LABS: MANUAL DIFF FLAG NO
[2024-01-22 13:37] LABS: Basophils Absolute Auto 0.1 X10*3/uL (0.0-0.2); Basophils Percent Auto 0.9 % (0-2); Eosinophils Absolute Auto 0.1 X10*3/uL (0.0-0.4); Eosinophils Percent Auto 1.9 % (0-4); Hematocrit 36.8 % (37.0-47.0); Imm Gran Abs Auto 0.02 X10*3/uL (0.00-0.03); Imm Gran Pct Auto 0.3 % (0.0-0.4); Lymphocytes Absolute Auto 1.2 X10*3/uL (1.2-4.9); Lymphocytes Percent Auto 17.1 % (20-40); Mean Corpuscular HGB Conc 32.6 g/dl (31.0-35.0); Mean Corpuscular Hemoglobin 29.6 pg (27.0-33.0); Mean Corpuscular Volume 90.9 fL (80.0-98.0); Mean Platelet Volume 10.8 fL (9.4-12.3); Monocytes Absolute Auto 0.5 X10*3/uL (0.1-1.2); Monocytes Percent Auto 6.6 % (2-11); Neutrophils Percent Auto 73.2 % (45-73); Platelet Count 233 X10*3/uL (160-400); Red Blood Count 4.05 X10*6/uL (4.20-5.50); White Blood Count 6.8 X10*3/uL (4.8-10.8)
[2024-01-22 14:14] LABS: Alanine Aminotransferase 13 U/L (0-31); Alkaline Phosphatase 61 U/L (39-117); Anion Gap 11 (12-20); Aspartate Amino Transferase 19 U/L (5-31); Bilirubin Total 0.3 mg/dL (0.0-1.0); Blood Urea Nitrogen 31 mg/dL (9-16); Calcium 9.2 mg/dL (8.4-10.2); Carbon Dioxide 26 mmol/L (22-29); Chloride 112 mmol/L (96-108); Estimated Glomerular Filt Rate 52; Glucose Random 74 mg/dL (60-115); Potassium 3.6 mmol/L (3.3-5.1); Sodium 145 mmol/L (135-145); Total Protein 6.7 g/dL (6.5-8.0)
[2024-01-22 14:23] LABS: TSH reflex Free T4 2.24 uIU/mL (0.32-4.0)
[2024-01-23 17:47] LABS: LDL Cholesterol Direct 140 mg/dL (<100)
[2024-01-27 16:39] LABS: Vitamin D 25-OH, D2 <4 ng/mL; Vitamin D 25-OH, D3 19 ng/mL; Vitamin D 25-OH, Total 19 ng/mL (30-100)
== END 2024-01-22 12:07 | disposition home or self-care (01) ==
LOC: HO.HMGCLDS 12:06
PROVIDERS: PCP Internal Medicine; Visit Provider Internal Medicine
DX: Z00.01 Encounter for general adult medical examination with abnormal findings (principal); E66.01 Morbid (severe) obesity due to excess calories; Z68.37 Body mass index [BMI] 37.0-37.9, adult; I10 Essential (primary) hypertension
CPT/HCPCS: 36415; 80053; 82306; 83721; 84443; 85025

== ENCOUNTER 2024-05-20 09:57 | Outpatient (AMB) | payer OTHER, SELFPAY ==
[2024-05-20 09:59] VITALS: BP 142/78; PULSE 52; O2SAT 97; BMI 36.9
--- NOTE | 2024-05-20 09:59 | MHC.PC.OV ---
Vital Signs 05/20/24 09:59 Height 5 ft 6 in Weight 228 lb 6 oz BMI 36.9 BP 142/78 H Blood Pressure Location Rt brachial Position Sitting Pulse 52 Pulse Source Pulse Oximeter Pulse Oximetry (%) 97 Intake Visit Reasons: 4M F/U Allergies No Known Allergies Allergy (Verified 05/20/24 09:59) Medication List - Last Reconciled 05/20/24 by Gloria Leal MD atenolol 25 mg PO DAILY B complex 15-vomrx-P-biot-zinc [id number] ml-ob-eie-mg 1 tab PO DAILY 90 days meloxicam 15 mg PO DAILY 90 days omeprazole 20 mg PO DAILY 90 days Tobacco use date assessed: 05/20/24 Fall risk assessment: No Falls in past year Last assessed Fall Risk: 05/20/24 Dental Screening Dental Screen Date: 05/20/24 Did you have a dental visit in the last 12 months?: Yes Did you have a dental problem in the last 6 months where you did not have access to dental care?: No Was dental information given to patient?: Patient has dentist HPI 4M F/U HPI Details Patient is 69-year-old female came in for regular follow-up appointment Patient went to [place] for vacation came back with upper respiratory tract infection Cough congestion and it has been over a month, patient says that it feels little bit better I have ordered chest x-ray for her if she did not improve over a week she will come and have that done Lab order placed as well She is monitoring her blood pressure very rarely, her blood pressure is elevated today in the office today I would recommend to start checking it more frequently and keep a log Heart rate is 52 I will not be increasing atenolol further If blood pressure is still elevated we will add another medication or change GERD is stable with omeprazole 20 mg 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 and is taking meloxicam 15 mg as needed Vitamin-D level was low last set of labs, should be on supplement Patient will return in 3 months for follow-up appointment [facility] Social History Housing: House Patient Tobacco Use Status: Never used Tobacco e-Cigarette/Vaping Use: Never Used service: No Current occupational status: employed Current occupation: [employer] Current occupational exposures/hazards: No Cognitive needs: No Hearing needs: No Vision needs: No Questionnaire PHQ-9 Over the last 2 weeks, how often have you been bothered by any of the following problems? 1. Little interest or pleasure in doing things: not at all 2. Feeling down, depressed, or hopeless: not at all 3. Trouble falling or staying asleep, or sleeping too much: not at all 4. Feeling tired or having little energy: not at all 5. Poor appetite or overeating: not at all 6. Feeling bad about yourself - or that you are a failure or have let yourself or your family down: not at all 7. Trouble concentrating on things, such as reading the newspaper or watching television: not at all 8. Moving or speaking so slowly that other people could have noticed. Or the opposite - being so fidgety or restless that you have been moving around a lot more than usual: not at all 9. Thoughts that you would be better off or of hurting yourself in some way: not at all Total score: 0 Depression Screening Interpretation: Negative Depression Screening Done: Yes 19673 - PHQ-9 Billing: Yes Source: Developed by Drs. Marlon Sánchez, Maritza Chacon, Bryan Madrid and colleagues, with an educational lorri from [employer]. Thrive Questionnaire Date Thrive assessed: 05/20/24 I am a: Patient What is your living situation today?: I have a steady place to live Within the past 12 months, did the food you bought not last and you didn't have the money to get more?: Never true Within the past 12 months, did you worry whether your food would run out before you got money to buy more?: Never true Do you have trouble paying for medicines?: No Do you have trouble getting transportation to medical appointments?: No Do you have trouble paying your heating and electricity bill?: No Do you have trouble taking care of your child, family member or friend?: No Do you have trouble with day-to-day activities such as bathing, preparing meals, shopping, managing finances, etc.?: No Are you currently unemployed and looking for a job?: No Are you interested in more education?: No Please select the resources that you would like help with: None Currently or been in a relationship where the following occur: No concerns reported THRIVE Score: 0 AUDIT C Alcohol Use Questionnaire (AUDIT-C) 1. How often do you have a drink containing alcohol?: Never 3. How often do you have six or more drinks on one occasion?: Never Total Score: 0 Score Reviewed/Action Taken: Yes MARGAUX-7 AMB Questionnaire MARGAUX-7 Date MARGAUX - 7 assessed: 05/20/24 Feeling nervous, anxious, or on edge: 0 = Not at all Not being able to stop or control worryin = Not at all Worrying too much about different things: 0 = Not at all Trouble relaxin = Not at all Being so restless that it is hard to sit still: 0 = Not at all Becoming easily annoyed or irritable: 0 = Not at all Feeling afraid as if something awful might happen: 0 = Not at all Total MARGAUX-7 score (0-4 normal; 5-9 mild; 10-14 moderate; 15-21 severe): 0 Source: Developed by Drs. Marlon Sánchez, Maritza Chacon, Bryan Madrid and colleagues, with an educational lorri from [employer]. MARGAUX-7 Assessment Billing MARGAUX-7 Assessment Tool: MARGAUX-7 Assessment 86556 Review of Systems Const Denies chills and Denies fever(s) ENT Denies epistaxis and Denies nasal discharge Card Denies chest pain Resp Denies hemoptysis GI Denies diarrhea and Denies nausea Skin/Breast Denies rash Neuro Reports no additional complaints Psych Reports no additional complaints Endo Reports no additional complaints Physical exam (Primary Care) Vital Signs: Last Vital Signs Pulse 52 05/20/24 09:59 BP 142/78 H 05/20/24 09:59 Pulse Ox 97 05/20/24 09:59 BMI result Body Mass Index 36.9 Tobacco/Smoking Status: Tobacco use Status Tobacco use date assessed 05/20/24 05/20/24 10:01 Patient Tobacco Use Status Never used Tobacco 05/20/24 10:01 e-Cigarette/Vaping Use Never Used 05/20/24 10:01 PHQ-9: PHQ-9 Score PHQ-9: Total score 0 05/20/24 10:01 Depression Screening Interpretation: Negative Thrive Assessment: Date of Thrive Assessment Date Thrive assessed 05/20/24 05/20/24 10:01 Currently or been in a relationship where the following occur: No concerns reported Const General: cooperative, comfortable and no acute distress Orientation/consciousness: patient oriented x3 HENMT Head: Yes normocephalic Eyes General: appearance normal, both eyes and all related structures Neck Neck: Yes supple Resp Effort & Inspection: normal respiratory effort, no cough and no stridor Cardio Rhythm: regular rhythm Heart sounds: S1 normal heart sound present and S2 normal heart sound present Skin General skin exam: turgor normal Neuro General: patient oriented x3, tone normal and moves all extremities Extrem Right lower extremity: no edema Left lower extremity: no edema Coding Level of Care Code Est Pt Level 4 (48844) Diagnoses Hypertension, essential I10 Class 2 severe obesity due to excess calories with serious comorbidity and body mass index (BMI) of 37.0 to 37.9 in adult E66.01; Z68.37 Body mass index: BMI 37.0-37.9 Obesity classification: adult class 2 (BMI 35 - 39.9) Serious obesity comorbidity presence: with serious comorbidity Chronic GERD K21.9 Vitamin D deficiency E55.9 Chronic cough R05.3 Arthritis, multiple joint involvement M12.9 Additional Codes MARGAUX-7 Assessment Billing - MARGAUX-7 Assessment Tool: MARGAUX-7 Assessment 33656 ([id number]) Assessment & Plan Assessment & Plan (1) Hypertension, essential: Code(s): I10 - Essential (primary) hypertension Category: Medical (2) Obesity due to excess calories: Code(s): E66.09 - Other obesity due to excess calories Category: Medical Qualifiers: Body mass index: BMI 37.0-37.9 Obesity classification: adult class 2 (BMI 35 - 39.9) Serious obesity comorbidity presence: with serious comorbidity Qualified Code(s): E66.01 - Morbid (severe) obesity due to excess calories; Z68.37 - Body mass index [BMI] 37.0-37.9, adult (3) Chronic GERD: Code(s): K21.9 - Gastro-esophageal reflux disease without esophagitis Category: Medical (4) Vitamin D deficiency: Code(s): E55.9 - Vitamin D deficiency, unspecified Category: Medical (5) Chronic cough: Code(s): R05.3 - Chronic cough Category: Medical (6) Arthritis, multiple joint involvement: Code(s): M12.9 - Arthropathy, unspecified Category: Medical Plan Patient is 69-year-old female came in for regular follow-up appointment Patient went to [place] for vacation came back with upper respiratory tract infection Cough congestion and it has been over a month, patient says that it feels little bit better I have ordered chest x-ray for her if she did not improve over a week she will come and have that done Lab order placed as well She is monitoring her blood pressure very rarely, her blood pressure is elevated today in the office today I would recommend to start checking it more frequently and keep a log Heart rate is 52 I will not be increasing atenolol further If blood pressure is still elevated we will add another medication or change GERD is stable with omeprazole 20 mg 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 Panel Today E55.9 - Vitamin D deficiency, unspecified, E66.01 - Morbid (severe) obesity due to excess calories, I10 - Essential (primary) hypertension, K21.9 - Gastro-esophageal reflux disease without esophagitis, M12.9 - Arthropathy, unspecified, R05.3 - Chronic cough, Z68.37 - Body mass index [BMI] 37.0-37.9, adult XR chest 2V Today R05.3 - Chronic cough Complete Blood Count Auto Diff Today E55.9 - Vitamin D deficiency, unspecified, E66.01 - Morbid (severe) obesity due to excess calories, I10 - Essential (primary) hypertension, K21.9 - Gastro-esophageal reflux disease without esophagitis, M12.9 - Arthropathy, unspecified, R05.3 - Chronic cough, Z68.37 - Body mass index [BMI] 37.0-37.9, adult LDL Cholesterol Direct Today E55.9 - Vitamin D deficiency, unspecified, E66.01 - Morbid (severe) obesity due to excess calories, I10 - Essential (primary) hypertension, K21.9 - Gastro-esophageal reflux disease without esophagitis, M12.9 - Arthropathy, unspecified, R05.3 - Chronic cough, Z68.37 - Body mass index [BMI] 37.0-37.9, adult Vitamin D 25-OH (D2 and D3) Today E55.9 - Vitamin D deficiency, unspecified, E66.01 - Morbid (severe) obesity due to excess calories, I10 - Essential (primary) hypertension, K21.9 - Gastro-esophageal reflux disease without esophagitis, M12.9 - Arthropathy, unspecified, R05.3 - Chronic cough, Z68.37 - Body mass index [BMI] 37.0-37.9, adult
== END 2024-05-20 10:22 | disposition home or self-care (01) ==
PROVIDERS: PCP Internal Medicine; Visit Provider Internal Medicine
DX: I10 Essential (primary) hypertension (principal); E66.01 Morbid (severe) obesity due to excess calories; Z68.37 Body mass index [BMI] 37.0-37.9, adult; K21.9 Gastro-esophageal reflux disease without esophagitis; E55.9 Vitamin D deficiency, unspecified; R05.3 Chronic cough; M12.9 Arthropathy, unspecified

== ENCOUNTER → 2024-05-20 09:57 | Outpatient (BNVA) | payer OTHER, SELFPAY | PROVIDERS: PCP Internal Medicine; Visit Provider Internal Medicine | DX: I10 Essential (primary) hypertension (principal); E66.01 Morbid (severe) obesity due to excess calories; Z68.37 Body mass index [BMI] 37.0-37.9, adult; K21.9 Gastro-esophageal reflux disease without esophagitis; E55.9 Vitamin D deficiency, unspecified; R05.3 Chronic cough; M12.9 Arthropathy, unspecified; Z79.899 Other long term (current) drug therapy | CPT/HCPCS: 96127 ==

== ENCOUNTER 2024-08-27 11:07 | Outpatient (AMB) | payer OTHER, SELFPAY ==
--- NOTE | 2024-08-27 11:10 | A.OFFPC_ITS ---
Vital Signs 08/27/24 11:11 Height 5 ft 6 in Weight 232 lb 2 oz BMI 37.5 BP 110/64 Blood Pressure Location Lt brachial Position Sitting Pulse 62 Pulse Source Pulse Oximeter Pulse Oximetry (%) 97 Oxygen Delivery Method Room Air Intake Visit Reasons: 3M F/U Allergies No Known Allergies Allergy (Verified 08/27/24 11:11) Medication List - Last Reconciled 08/27/24 by Gloria Leal MD atenolol 25 mg PO DAILY B complex 61-hgvnn-O-biot-zinc [id number] gl-dx-akx-mg 1 tab PO DAILY 90 days meloxicam 15 mg PO DAILY 90 days omeprazole 20 mg PO DAILY 90 days Tobacco use date assessed: 08/27/24 Fall risk assessment: No Falls in past year Last assessed Fall Risk: 08/27/24 Dental Screening Dental Screen Date: 08/27/24 Did you have a dental visit in the last 12 months?: No Did you have a dental problem in the last 6 months where you did not have access to dental care?: No Was dental information given to patient?: Patient declined HPI 3M F/U HPI Details Patient is 69-year-old female came in for regular follow-up appointment Patient was supposed to have labs done before this visit but she forgot She will have it done today Blood pressure is well-controlled at 110/64, she is taking atenolol 25 mg without any side effects GERD is stable with omeprazole 20 mg She says that some days she is feeling better some days not She is [place] Patient will return in January for physical exam Still struggling with weight, her BMI is 37.5 Vitamin-D level is low, once again reminded patient to start taking supplement PFSH Social History Housing: House Patient Tobacco Use Status: Never used Tobacco e-Cigarette/Vaping Use: Never Used service: No Current occupational status: employed Current occupation: [email or web address] Current occupational exposures/hazards: No Cognitive needs: No Hearing needs: No Vision needs: No Questionnaire PHQ-9 Over the last 2 weeks, how often have you been bothered by any of the following problems? 1. Little interest or pleasure in doing things: not at all 2. Feeling down, depressed, or hopeless: not at all 3. Trouble falling or staying asleep, or sleeping too much: not at all 4. Feeling tired or having little energy: not at all 5. Poor appetite or overeating: not at all 6. Feeling bad about yourself - or that you are a failure or have let yourself or your family down: not at all 7. Trouble concentrating on things, such as reading the newspaper or watching television: not at all 8. Moving or speaking so slowly that other people could have noticed. Or the opposite - being so fidgety or restless that you have been moving around a lot more than usual: not at all 9. Thoughts that you would be better off or of hurting yourself in some way: not at all Total score: 0 Depression Screening Interpretation: Negative Depression Screening Done: Yes 08882 - PHQ-9 Billing: Yes Source: Developed by Drs. Marlon Sánchez, Maritza Chacon, Bryan Madrid and colleagues, with an educational lorri from [employer]. Thrive Questionnaire Date Thrive assessed: 08/27/24 I am a: Patient What is your living situation today?: I have a steady place to live Within the past 12 months, did the food you bought not last and you didn't have the money to get more?: Never true Within the past 12 months, did you worry whether your food would run out before you got money to buy more?: Never true Do you have trouble paying for medicines?: No Do you have trouble getting transportation to medical appointments?: No Do you have trouble paying your heating and electricity bill?: No Do you have trouble taking care of your child, family member or friend?: No Do you have trouble with day-to-day activities such as bathing, preparing meals, shopping, managing finances, etc.?: No Are you currently unemployed and looking for a job?: No Are you interested in more education?: No Please select the resources that you would like help with: None Currently or been in a relationship where the following occur: No concerns reported THRIVE Score: 0 AUDIT C Alcohol Use Questionnaire (AUDIT-C) 1. How often do you have a drink containing alcohol?: Never 3. How often do you have six or more drinks on one occasion?: Never Total Score: 0 Score Reviewed/Action Taken: Yes MARGAUX-7 AMB Questionnaire MARGAUX-7 Date MARGAUX - 7 assessed: 08/27/24 Feeling nervous, anxious, or on edge: 0 = Not at all Not being able to stop or control worryin = Not at all Worrying too much about different things: 0 = Not at all Trouble relaxin = Not at all Being so restless that it is hard to sit still: 0 = Not at all Becoming easily annoyed or irritable: 0 = Not at all Feeling afraid as if something awful might happen: 0 = Not at all Total MARGAUX-7 score (0-4 normal; 5-9 mild; 10-14 moderate; 15-21 severe): 0 Source: Developed by Drs. Marlon Sánchez, Maritza Chacon, Bryan Madrid and colleagues, with an educational lorri from [employer]. MARGAUX-7 Assessment Billing MARGAUX-7 Assessment Tool: MARGAUX-7 Assessment 66606 Review of Systems Const Denies chills and Denies fever(s) ENT Denies epistaxis and Denies nasal discharge Card Denies chest pain Resp Denies chest congestion, Denies cough and Denies hemoptysis GI Denies diarrhea and Denies nausea Skin/Breast Denies rash Neuro Reports no additional complaints Psych Reports no additional complaints Endo Reports no additional complaints Physical exam (Primary Care) Vital Signs: Last Vital Signs Pulse 62 08/27/24 11:11 BP 110/64 08/27/24 11:11 Pulse Ox 97 08/27/24 11:11 Oxygen Delivery Method Room Air 08/27/24 11:11 BMI result Body Mass Index 37.5 Tobacco/Smoking Status: Tobacco use Status Tobacco use date assessed 08/27/24 08/27/24 11:17 Patient Tobacco Use Status Never used Tobacco 08/27/24 11:17 e-Cigarette/Vaping Use Never Used 08/27/24 11:17 PHQ-9: PHQ-9 Score PHQ-9: Total score 0 08/27/24 11:17 Depression Screening Interpretation: Negative Thrive Assessment: Date of Thrive Assessment Date Thrive assessed 08/27/24 08/27/24 11:17 Currently or been in a relationship where the following occur: No concerns reported Const General: cooperative, comfortable and no acute distress Orientation/consciousness: patient oriented x3 HENMT Head: Yes normocephalic Eyes General: appearance normal, both eyes and all related structures Neck Neck: Yes supple Resp Effort & Inspection: normal respiratory effort, no cough and no stridor Cardio Rhythm: regular rhythm Heart sounds: S1 normal heart sound present and S2 normal heart sound present Skin General skin exam: turgor normal Neuro General: patient oriented x3, tone normal and moves all extremities Extrem Right lower extremity: no edema Left lower extremity: no edema Coding Level of Care Code Est Pt Level 3 (58067) Diagnoses Hypertension, essential I10 Class 2 severe obesity due to excess calories with serious comorbidity and body mass index (BMI) of 37.0 to 37.9 in adult E66.01; Z68.37 Obesity classification: adult class 2 (BMI 35 - 39.9) Serious obesity comorbidity presence: with serious comorbidity Body mass index: BMI 37.0-37.9 Chronic GERD K21.9 Vitamin D deficiency E55.9 Arthritis, multiple joint involvement M12.9 Additional Codes MARGAUX-7 Assessment Billing - MARGAUX-7 Assessment Tool: MARGAUX-7 Assessment 64480 ([id number]) PHQ-9 - 99749 - PHQ-9 Billing: Yes ([id number]) Assessment & Plan Assessment & Plan (1) Hypertension, essential: Code(s): I10 - Essential (primary) hypertension Category: Medical (2) Obesity due to excess calories: Code(s): E66.09 - Other obesity due to excess calories Category: Medical Qualifiers: Obesity classification: adult class 2 (BMI 35 - 39.9) Serious obesity comorbidity presence: with serious comorbidity Body mass index: BMI 37.0-37.9 Qualified Code(s): E66.01 - Morbid (severe) obesity due to excess calories; Z68.37 - Body mass index [BMI] 37.0-37.9, adult (3) Chronic GERD: Code(s): K21.9 - Gastro-esophageal reflux disease without esophagitis Category: Medical (4) Vitamin D deficiency: Code(s): E55.9 - Vitamin D deficiency, unspecified Category: Medical (5) Arthritis, multiple joint involvement: Code(s): M12.9 - Arthropathy, unspecified Category: Medical Plan Patient is 69-year-old female came in for regular follow-up appointment Patient was supposed to have labs done before this visit but she forgot She will have it done today Blood pressure is well-controlled at 110/64, she is taking atenolol 25 mg without any side effects GERD is stable with omeprazole 20 mg She says that some days she is feeling better some days not She is planning to [place] Patient will return in January for physical exam Still struggling with weight, her BMI is 37.5 Vitamin-D level is low, once again reminded patient to start taking supplement Medications: Refilled atenolol 25 mg PO DAILY 90 tabs 1RF atenolol 25 mg PO DAILY 90 tabs 1RF Resumed omeprazole 20 mg PO DAILY 90 days 90 caps 0RF omeprazole 20 mg PO DAILY 90 days 90 caps 0RF
[2024-08-27 11:11] VITALS: BP 110/64; PULSE 62; O2SAT 97; BMI 37.5
== END 2024-08-27 12:07 | disposition home or self-care (01) ==
PROVIDERS: PCP Internal Medicine; Visit Provider Internal Medicine
DX: I10 Essential (primary) hypertension (principal); E66.01 Morbid (severe) obesity due to excess calories; Z68.37 Body mass index [BMI] 37.0-37.9, adult; K21.9 Gastro-esophageal reflux disease without esophagitis; E55.9 Vitamin D deficiency, unspecified; M12.9 Arthropathy, unspecified

== ENCOUNTER 2024-08-27 11:07 | Outpatient (REF) | payer OTHER, SELFPAY ==
[2024-08-27 13:06] LABS: MANUAL DIFF FLAG NO
[2024-08-27 13:13] LABS: Basophils Absolute Auto 0.1 X10*3/uL (0.0-0.2); Basophils Percent Auto 0.7 % (0-2); Eosinophils Absolute Auto 0.2 X10*3/uL (0.0-0.4); Eosinophils Percent Auto 2.3 % (0-4); Hematocrit 39.5 % (37.0-47.0); Imm Gran Abs Auto 0.01 X10*3/uL (0.00-0.03); Imm Gran Pct Auto 0.1 % (0.0-0.4); Lymphocytes Absolute Auto 1.5 X10*3/uL (1.2-4.9); Mean Corpuscular HGB Conc 32.9 g/dl (31.0-35.0); Mean Corpuscular Hemoglobin 29.5 pg (27.0-33.0); Mean Corpuscular Volume 89.6 fL (80.0-98.0); Mean Platelet Volume 10.7 fL (9.4-12.3); Monocytes Absolute Auto 0.5 X10*3/uL (0.1-1.2); Monocytes Percent Auto 6.7 % (2-11); Neutrophils Absolute Auto 4.7 x10*3/uL (2.0-8.3); Neutrophils Percent Auto 68.2 % (45-73); Platelet Count 249 X10*3/uL (160-400); Red Blood Count 4.41 X10*6/uL (4.20-5.50); Red Cell Distribution Width 12.1 % (11.0-16.0); White Blood Count 6.9 X10*3/uL (4.8-10.8)
[2024-08-27 13:46] LABS: Alanine Aminotransferase 20 U/L (0-31); Albumin Level 3.9 g/dL (3.5-5.0); Alkaline Phosphatase 86 U/L (39-117); Anion Gap 10 (12-20); Aspartate Amino Transferase 19 U/L (5-31); Bilirubin Total 0.3 mg/dL (0.0-1.0); Blood Urea Nitrogen 18 mg/dL (9-16); Calcium 9.1 mg/dL (8.4-10.2); Carbon Dioxide 28 mmol/L (22-29); Chloride 110 mmol/L (96-108); Estimated Glomerular Filt Rate > 60; Glucose Random 87 mg/dL (60-115); Sodium 144 mmol/L (135-145)
[2024-08-28 21:04] LABS: LDL Cholesterol Direct 163 mg/dL (<100)
[2024-08-31 14:48] LABS: Vitamin D 25-OH, D2 <4 ng/mL; Vitamin D 25-OH, D3 23 ng/mL; Vitamin D 25-OH, Total 23 ng/mL (30-100)
== END 2024-08-27 11:08 | disposition home or self-care (01) ==
LOC: HO.HMGCLDS 11:07
PROVIDERS: PCP Internal Medicine; Visit Provider Internal Medicine
DX: I10 Essential (primary) hypertension (principal); E66.01 Morbid (severe) obesity due to excess calories; Z68.37 Body mass index [BMI] 37.0-37.9, adult; K21.9 Gastro-esophageal reflux disease without esophagitis; E55.9 Vitamin D deficiency, unspecified; M12.9 Arthropathy, unspecified; R05.3 Chronic cough; Z79.899 Other long term (current) drug therapy
CPT/HCPCS: 36415; 80053; 82306; 83721; 85025; 96127

== ENCOUNTER 2025-01-30 09:50 | Outpatient (AMB) | payer OTHER, SELFPAY ==
[2025-01-30 10:00] VITALS: BP 126/72; PULSE 87; TEMP 36.7; O2SAT 98; BMI 37.3
--- NOTE | 2025-01-30 10:00 | MHC.PC.OV ---
Vital Signs 01/30/25 10:00 Height 5 ft 6 in Weight 231 lb 2 oz BMI 37.3 BP 126/72 Blood Pressure Location Rt brachial Position Sitting Pulse 87 Pulse Source Pulse Oximeter Temp 98.1 F Temp Source Oral Pulse Oximetry (%) 98 Oxygen Delivery Method Room Air Intake Visit Reasons: PE- see comments Allergies No Known Allergies Allergy (Verified 01/30/25 10:01) Medication List - Last Reconciled 01/30/25 by Gloria Leal MD atenolol 25 mg PO DAILY B complex 20-apycj-A-biot-zinc [id number] sx-zd-ljq-mg 1 tab PO DAILY 90 days meloxicam 15 mg PO DAILY 90 days omeprazole 20 mg PO DAILY 90 days Tobacco use date assessed: 01/30/25 Fall risk assessment: No Falls in past year Last assessed Fall Risk: 01/30/25 Dental Screening Dental Screen Date: 01/30/25 Did you have a dental visit in the last 12 months?: Yes Did you have a dental problem in the last 6 months where you did not have access to dental care?: No Was dental information given to patient?: Patient has dentist HPI PE- see comments HPI Details Patient is 69-year-old female came in today for physical examination Continued to declined to do mammogram Colonoscopy Or OBGYN visit Last set of lab reviewed from August Her LDL is in 160s She agreed to take statin today I have sent atorvastatin 10 mg Patient will repeat labs again in 6 weeks Vitamin-D level is still low I would recommend to continue supplement She has multiple joint osteoarthritis Currently taking meloxicam I am stopping it instead patient was start Celebrex 100 mg b.i.d. as needed Blood pressure is well-controlled at 110/64, she is taking atenolol 25 mg without any side effects GERD is stable with omeprazole 20 mg Still struggling with weight, her BMI is 37.3 Follow-up 4 months physical exam 1 [facility] Social History Housing: House Patient Tobacco Use Status: Never used Tobacco e-Cigarette/Vaping Use: Never Used service: No Current occupational status: employed Current occupation: [employer] Current occupational exposures/hazards: No Cognitive needs: No Hearing needs: No Vision needs: No Questionnaire Thrive Questionnaire Date Thrive assessed: 08/27/24 AUDIT C Alcohol Use Questionnaire (AUDIT-C) 1. How often do you have a drink containing alcohol?: Never 3. How often do you have six or more drinks on one occasion?: Never Total Score: 0 Score Reviewed/Action Taken: Yes MARGAUX-7 AMB Questionnaire MARGAUX-7 Date MARGAUX - 7 assessed: 08/27/24 Source: Developed by Drs. Marlon Sánchez, Maritza Chacon, Bryan Madrid and colleagues, with an educational lorri from [employer]. Review of Systems Const Denies chills, Denies fever(s) and Denies headache(s) Eyes Denies blurry vision ENT Denies headache(s), Denies nasal discharge, Denies nasal obstruction, Denies odynophagia and Denies sinus pain Card Denies chest pain at rest and Denies chest pain with activity Resp Denies cough and Denies hemoptysis GI Denies diarrhea, Denies odynophagia, Denies vomiting and Denies hematemesis Reports as per HPI Musc Denies abnormal gait Skin/Breast Reports as per HPI Neuro Denies Neuro-related abnormal movements, Denies Abnormal speech present, Denies abnormal gait, Denies headache(s) and Denies Sensory deficit (Neuro) Psych Denies mood swings and Denies paranoia Endo Reports as per HPI Geoff/Lymph Reports as per HPI Aller/Immun Reports as per HPI Physical exam (Primary Care) Vital Signs: Last Vital Signs Temp 98.1 F 01/30/25 10:00 Pulse 87 01/30/25 10:00 BP 126/72 01/30/25 10:00 Pulse Ox 98 01/30/25 10:00 Oxygen Delivery Method Room Air 01/30/25 10:00 BMI result Body Mass Index 37.3 Tobacco/Smoking Status: Tobacco use Status Tobacco use date assessed 01/30/25 01/30/25 10:02 Patient Tobacco Use Status Never used Tobacco 01/30/25 10:02 e-Cigarette/Vaping Use Never Used 01/30/25 10:02 Thrive Assessment: Date of Thrive Assessment Date Thrive assessed 08/27/24 01/30/25 10:02 Const General: cooperative, comfortable and no acute distress Orientation/consciousness: patient oriented x3 HENMT Head: Yes normocephalic and Yes atraumatic Eyes General: appearance normal, both eyes and all related structures Pupils: Equal, round and reactive pupils present EOM: EOMs intact bilaterally Neck Neck: Yes supple and No lymphadenopathy Thyroid: Thyroid normal Lymphatic: no lymphadenopathy noted Resp Effort & Inspection: normal respiratory effort and able to speak in complete sentences Auscultation: clear to auscultation bilaterally Cardio Heart sounds: S1 normal heart sound present and S2 normal heart sound present GI Palpation (GI): Soft to palpation and nontender Auscultation: normal bowel sounds General: Yes no CVA tenderness Back/Spine/Pelvis Back: no CVA tenderness Skin General skin exam: elasticity normal and turgor normal Neuro General: patient oriented x3 and gait normal Cranial nerves: Yes Equal, round and reactive pupils present Speech: No Abnormal speech present Sensory Exam: No Sensory deficit (Neuro) Coordination: tandem gait normal and Romberg test negative Extrem General: Yes normal exam except as noted and No edema Coding Level of Care Code Est Pt Level 3 (94401) Est Pt Prev Care >65y(80688) Diagnoses Encounter for general adult medical examination with abnormal findings Z00. Lipid disorder E78.9 Class 2 severe obesity due to excess calories with serious comorbidity and body mass index (BMI) of 37.0 to 37.9 in adult E66.01; Z68.37 Body mass index: BMI 37.0-37.9 Obesity classification: adult class 2 (BMI 35 - 39.9) Serious obesity comorbidity presence: with serious comorbidity Chronic GERD K21.9 Hypertension, essential I10 Vitamin D deficiency E55.9 Arthritis, multiple joint involvement M12.9 Assessment & Plan Assessment & Plan (1) Encounter for general adult medical examination with abnormal findings: Code(s): Z00.01 - Encounter for general adult medical examination with abnormal findings Category: Medical (2) Lipid disorder: Code(s): E78.9 - Disorder of lipoprotein metabolism, unspecified Category: Medical (3) Obesity due to excess calories: Code(s): E66.09 - Other obesity due to excess calories Category: Medical Qualifiers: Body mass index: BMI 37.0-37.9 Obesity classification: adult class 2 (BMI 35 - 39.9) Serious obesity comorbidity presence: with serious comorbidity Qualified Code(s): E66.01 - Morbid (severe) obesity due to excess calories; Z68.37 - Body mass index [BMI] 37.0-37.9, adult (4) Chronic GERD: Code(s): K21.9 - Gastro-esophageal reflux disease without esophagitis Category: Medical (5) Hypertension, essential: Code(s): I10 - Essential (primary) hypertension Category: Medical (6) Vitamin D deficiency: Code(s): E55.9 - Vitamin D deficiency, unspecified Category: Medical (7) Arthritis, multiple joint involvement: Code(s): M12.9 - Arthropathy, unspecified Category: Medical Plan Patient is 69-year-old female came in today for physical examination Continued to declined to do mammogram Colonoscopy Or OBGYN visit Last set of lab reviewed from August Her LDL is in 160s She agreed to take statin today I have sent atorvastatin 10 mg Patient will repeat labs again in 6 weeks Vitamin-D level is still low I would recommend to continue supplement She has multiple joint osteoarthritis Currently taking meloxicam I am stopping it instead patient was start Celebrex 100 mg b.i.d. as needed Blood pressure is well-controlled at 110/64, she is taking atenolol 25 mg without any side effects GERD is stable with omeprazole 20 mg Still struggling with weight, her BMI is 37.3 Follow-up 4 months physical exam 1 year Medications: New atorvastatin 10 mg PO BEDTIME 90 tabs 0RF high cholesterol celecoxib 100 mg PO BID PRN 180 caps 0RF pain 90 days Discontinued meloxicam Discontinued Reason: Doctor's Order 15 mg PO DAILY 90 days 90 tabs 0RF
== END 2025-01-30 10:22 | disposition home or self-care (01) ==
LOC: HO.HMCC 09:50
PROVIDERS: PCP Internal Medicine; Visit Provider Internal Medicine
DX: Z00.01 Encounter for general adult medical examination with abnormal findings (principal); E78.9 Disorder of lipoprotein metabolism, unspecified; E66.01 Morbid (severe) obesity due to excess calories; Z68.37 Body mass index [BMI] 37.0-37.9, adult; K21.9 Gastro-esophageal reflux disease without esophagitis; I10 Essential (primary) hypertension; E55.9 Vitamin D deficiency, unspecified; M12.9 Arthropathy, unspecified

== ENCOUNTER → 2025-01-30 09:50 | Outpatient (BNVA) | payer OTHER, SELFPAY | PROVIDERS: PCP Internal Medicine; Visit Provider Internal Medicine ==

== ENCOUNTER 2025-05-20 09:14 | Outpatient (REF) | payer OTHER, SELFPAY ==
--- OUTSIDE RECORDS SUMMARY | 2025-05-20 10:01 | XMS_ITS ---
Author Name [facility] Organization Unknown Care Team Organization Name Specialty Phone Email Start Date End Da te [facility] Termed, PROVIDER Primary Care 06/27/202203/20
[2025-05-20 11:15] LABS: Cholesterol 175 mg/dL (<200); HDL Cholesterol 41 mg/dL (>40); Triglycerides 129 mg/dL (<150)
== END 2025-05-20 09:15 | disposition home or self-care (01) ==
LOC: HO.HMGCLDS 09:14
PROVIDERS: PCP Internal Medicine; Visit Provider Internal Medicine
DX: E78.9 Disorder of lipoprotein metabolism, unspecified (principal)
CPT/HCPCS: 36415; 80061